=== PATIENT | female | born 1960 | race Two or more races ===

== ENCOUNTER → 2024-10-06 | Outpatient (CLI) | payer OTHER, MEDICAID, SELFPAY ==
[2024-10-06 08:17] LABS: Misc Send Out* See Sep Rpt
[2024-10-06 08:56] LABS: Basophils % (Auto) 0 % (0-2.5); Eosinophils # (Auto) 0.1 Thou/mm3 (0.0-0.5); Eosinophils % (Auto) 1 % (0-10); Hematocrit 36.5 % (36.0-46.0); Hemoglobin 12.3 g/dL (12.0-16.0); Immature Granulocytes % (Auto) 0 % (0-0); Immature Granulocytes Auto 0.01 Thou/mm3 (0.00-0.00); Lymphocytes % (Auto) 42 % (10-50); Mean Corpuscular HGB Conc 33.7 g/dl (31.0-37.0); Mean Corpuscular Hemoglobin 31.8 pg (25.0-35.0); Mean Corpuscular Volume 94 fL (80-100); Monocytes # (Auto) 0.4 Thou/mm3 (0.0-0.8); Monocytes % (Auto) 8 % (0-12); Neutrophils # (Auto) 2.4 Thou/mm3 (1.8-7.7); Neutrophils % (Auto) 49 % (37-80); Nucleated Red Blood Cell % 0 /100 WBC (0); Platelet Count 245 Thou/mm3 (140-440); RDW Standard Deviation 41.6 fL (36.4-46.3); Red Blood Count 3.87 Miln/mm3 (4.00-5.20); White Blood Count 4.9 Thou/mm3 (3.6-11.0)
[2024-10-06 09:04] LABS: Cardiac Risk Estimate 3.6 RATIO (3.7-5.6); Cholesterol 197 mg/dL (132-200); HDL Cholesterol 54 mg/dL (40-60); LDL Cholesterol,Calculated 119 mg/dL (0-130); Thyroid Stimulating Hormone 1.82 uIU/mL (0.55-4.78); Triglycerides 122 mg/dL (30-150)
[2024-10-06 09:47] LABS: Creatinine MALB Rnd Ur 95 mg/dL (30-125); Microalbumin, Random Urine < 3 mg/L (0-300)
[2024-10-06 09:49] LABS: Glucose Estimated Average 123 mg/dL (80-131); Hemoglobin A1C 5.9 % Hgb (4.8-6.0)
[2024-10-09 06:37] LABS: Thyroid Peroxidase Antibodies* 454 IU/mL (<9)
== END | disposition home or self-care (01) ==
LOC: COPL 07:49
PROVIDERS: PCP Family Medicine; Referring Provider Nurse Practitioner Family; Visit Provider Nurse Practitioner Family
DX: I10 Essential (primary) hypertension (principal); I70.0 Atherosclerosis of aorta; R73.03 Prediabetes; E03.9 Hypothyroidism, unspecified
CPT/HCPCS: 36415; 80061; 82043; 82172; 82570; 83036; 84436; 84443; 85025; 86376

== ENCOUNTER → 2024-11-14 | Outpatient (CLI) | payer MEDICARE, MEDICAID, SELFPAY ==
--- NOTE | 2024-11-14 15:15 | XR_ITS ---
Examination: Screening digital mammography, bilateral Computer aided detection 3-D breast Tomosynthesis, bilateral Date and time of exam: November 14, 2024 1523 hours Compared to mammograms dating to March 25, 2012 Indication: Screening Technique: Nonmagnified MLO, CC views of the breasts to been obtained, reconstructed from 3-D Tomosynthesis images. R2 computer aided detection program utilized for evaluation of suspicious masses and/or abnormal calcifications. 3-D Tomosynthesis images obtained. Findings: Scattered areas of fibroglandular density. Stable focal asymmetries upper left breast MLO view in the inner right breast CC view No interval suspicious masses Impression: BI-RADS category II: Benign Findings. Recommend 1 year follow-up mammogram.
== END | disposition home or self-care (01) ==
PROVIDERS: PCP Nurse Practitioner Family; Referring Provider Nurse Practitioner Family; Visit Provider Nurse Practitioner Family
DX: Z12.31 Encounter for screening mammogram for malignant neoplasm of breast (principal); R92.323 Mammographic fibroglandular density, bilateral breasts
CPT/HCPCS: 77063; 77067

== ENCOUNTER → 2024-12-25 | Outpatient (CLI) | payer MEDICARE, MEDICAID, SELFPAY ==
[2024-12-25 08:46] LABS: Glucose Estimated Average 120 mg/dL (80-131); Hemoglobin A1C 5.8 % Hgb (4.8-6.0)
[2024-12-25 09:01] LABS: Thyroid Stimulating Hormone 2.92 uIU/mL (0.55-4.78)
[2024-12-25 15:03] LABS: T4 (Thyroxine) 7.8 mcg/dL (4.5-10.9)
[2025-01-01 06:57] LABS: ANA Screen, IFA POSITIVE (NEGATIVE); Thyroid Peroxidase Antibodies* 647 IU/mL (<9)
== END | disposition home or self-care (01) ==
PROVIDERS: PCP Nurse Practitioner Family; Referring Provider Nurse Practitioner Family; Visit Provider Nurse Practitioner Family
DX: E06.3 Autoimmune thyroiditis (principal); R73.03 Prediabetes
CPT/HCPCS: 36415; 83036; 84436; 84443; 86038; 86376

== ENCOUNTER → 2025-04-15 | Outpatient (CLI) | payer MEDICARE, MEDICAID, SELFPAY ==
[2025-04-15 15:55] LABS: Glucose Estimated Average 123 mg/dL (80-131); Hemoglobin A1C 5.9 % Hgb (4.8-6.0)
[2025-04-15 15:59] LABS: T4 (Thyroxine) 6.7 mcg/dL (4.5-10.9); Thyroid Stimulating Hormone 2.62 uIU/mL (0.55-4.78)
[2025-04-20 06:47] LABS: Thyroid Peroxidase Antibodies* 352 IU/mL (<9)
== END | disposition home or self-care (01) ==
LOC: COPL 14:51
PROVIDERS: PCP Family Medicine; Referring Provider Nurse Practitioner Family; Visit Provider Nurse Practitioner Family
DX: E06.3 Autoimmune thyroiditis (principal); R73.03 Prediabetes
CPT/HCPCS: 36415; 83036; 84436; 84443; 86376

== ENCOUNTER → 2025-07-14 | Outpatient (CLI) | payer MEDICARE, MEDICAID, SELFPAY ==
[2025-07-14 09:14] LABS: Glucose Estimated Average 126 mg/dL (80-131); Hemoglobin A1C 6.0 % Hgb (4.8-6.0)
[2025-07-14 09:28] LABS: Cardiac Risk Estimate 3.8 RATIO (3.7-5.6); Cholesterol 200 mg/dL (132-200); HDL Cholesterol 52 mg/dL (40-60); LDL Cholesterol,Calculated 110 mg/dL (0-130); Thyroid Stimulating Hormone 2.47 uIU/mL (0.55-4.78); Triglycerides 188 mg/dL (30-150)
[2025-07-14 09:33] LABS: T4 (Thyroxine) 8.5 mcg/dL (4.5-10.9)
[2025-07-17 06:24] LABS: Thyroid Peroxidase Antibodies* 229 IU/mL (<9)
== END | disposition home or self-care (01) ==
LOC: COPL 07:53
PROVIDERS: PCP Nurse Practitioner Family; Referring Provider Nurse Practitioner Family; Visit Provider Nurse Practitioner Family
DX: R73.03 Prediabetes (principal); I10 Essential (primary) hypertension; E06.3 Autoimmune thyroiditis
CPT/HCPCS: 36415; 80061; 83036; 84436; 84443; 86376

== ENCOUNTER → 2025-07-20 | Outpatient (CLI) | payer MEDICARE, MEDICAID, SELFPAY ==
--- NOTE | 2025-07-20 12:00 | XR_ITS ---
Examination: Bone densitometry Date and time of exam:July 20, 2025, 1155 hours INDICATIONS: Menopause age 38 Technique: Lumbar spine and hip total bone mineralization values of an calculated. Peak reference and age match control results have been displayed. Findings: Lumbar spine total bone mineralization is0.974 gm/cm2. This is 0.7 standard deviations below peak reference. This is 1.3 standard deviations above age-matched controls. Hip total bone mineralization is 0.994 gm/cm2 This is 0.2 standard deviations above peak reference. This is 1.5 standard deviations above age-matched controls Impression: There is normal mineralization based on lumbar spine measurements. There is osteopenia based on hip measurements Lumbar mineralization is increased 2.6% compared with 07/13/2023 Hip mineralization is increase 0.1% compared with 07/13/2023
== END | disposition home or self-care (01) ==
LOC: CDIM 11:30
PROVIDERS: Referring Provider Nurse Practitioner Family; Visit Provider Nurse Practitioner Family
DX: M85.89 Other specified disorders of bone density and structure, multiple sites (principal)
CPT/HCPCS: 77080